=== PATIENT | male | born 1945 | race Caucasian/White ===

== ENCOUNTER 2024-01-29 09:55 | Outpatient (AMB) | payer OTHER, SELFPAY ==
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
[2024-01-29 10:13] VITALS: BP 98/70; PULSE 68; O2SAT 96; BMI 19.7
== END 2024-01-29 12:03 | disposition home or self-care (01) ==
PROVIDERS: Visit Provider Nurse Practitioner Family
DX: G20.A1 Parkinson's disease without dyskinesia, without mention of fluctuations (principal); R41.841 Cognitive communication deficit; F34.1 Dysthymic disorder
CPT/HCPCS: 99204

== ENCOUNTER → 2024-01-29 09:55 | Outpatient (BNVA) | payer OTHER, SELFPAY | PROVIDERS: Visit Provider Nurse Practitioner Family | DX: G20.A1 Parkinson's disease without dyskinesia, without mention of fluctuations (principal); F02.80 Dementia in other diseases classified elsewhere, unspecified severity, without behavioral disturbance, psychotic disturbance, mood disturbance, and anxiety; R41.841 Cognitive communication deficit; R26.9 Unspecified abnormalities of gait and mobility; R29.898 Other symptoms and signs involving the musculoskeletal system; F34.1 Dysthymic disorder | CPT/HCPCS: 99202 ==

== ENCOUNTER 2024-08-08 08:02 | Outpatient (AMB) | payer OTHER, SELFPAY ==
[2024-08-08 08:23] VITALS: BP 120/70; PULSE 70; O2SAT 97; BMI 22.6
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
== END 2024-08-08 09:25 | disposition home or self-care (01) ==
PROVIDERS: Visit Provider Nurse Practitioner Family
DX: G20.A1 Parkinson's disease without dyskinesia, without mention of fluctuations (principal); R41.841 Cognitive communication deficit; F34.1 Dysthymic disorder
CPT/HCPCS: 99214

== ENCOUNTER → 2024-08-08 08:02 | Outpatient (BNVA) | payer OTHER, SELFPAY | PROVIDERS: Visit Provider Nurse Practitioner Family | DX: G20.A1 Parkinson's disease without dyskinesia, without mention of fluctuations (principal); R41.841 Cognitive communication deficit; F34.1 Dysthymic disorder | CPT/HCPCS: 99212 ==

== ENCOUNTER 2025-02-07 07:52 | Outpatient (AMB) | payer OTHER, SELFPAY ==
--- OUTSIDE RECORDS SUMMARY | 2025-02-07 07:55 | XMS_ITS | Clinical Summary ---
Author Organization [facility] Address [address] [place] [address] Care Team Providers Care Fermentation Manager Name Role Phone Pcp, No Primary Care Provider Unavailabl e Medications mirtazapine (Remeron) 30 mg tablet Take 30 mg by mouth at bedtime. Active omeprazole (PriLOSEC) [address] capsule Take 20 mg by mouth before breakfast. Do not crush or chew. Active rosuvastatin (Crestor) 10 mg tablet Take 10 mg by mouth in the morning. Active aspirin 81 mg chewable tablet Chew 81 mg in the morning. Active sertraline (Zoloft) 100 mg tablet Take 100 mg by mouth in the morning. Active tamsulosin (Flomax) 0.4 mg 24 hr capsule Take 0.4 mg by mouth in the morning. Active losartan (Cozaar) 100 mg tablet Take 100 mg by mouth in the morning. Active levothyroxine (Synthroid, Levoxyl) 75 mcg tablet Take 112 mcg by mouth before breakfast. Active carbidopa-levodo pa (Sinemet) 25-100 mg tablet Take 1 tablet by mouth in the morning, at noon, and at bedtime. Active amLODIPine (Norvasc) 10 mg tablet Take by mouth in the morning. Active Active Problems Problem Noted Date Diagnosed Date Parkinson disease (Multi-HCC) 05/12/2022 Assessment & Plan (05/12/2022 8:56 AM EST): His examination is clinically ambiguous but I would lean more towards that he has an early Parkinson's diagnosis largely based on the asymmetric slowness of movement and rigidity. The tremor is more suggestive of an essential tremor-type. I think getting a DaTscan is a good idea and would [facility]. I would also consider holding the levodopa and consider something else like rasagiline instead due to the mildness of his motor symptoms. He will follow-up as needed if the [facility] is unable to arrange for the DaTscan. Social History Tobacco Use Types Packs/Day Years Used Date Smoking Tobacco: Never Assessed Sex and Gender Information Value Date Recorded Sex Assigned at Not on file Legal Sex Male 4:12 PM EDT Gender Identity Not on file Sexual Orientation Not on file Last Filed Vital Signs Vital Sign Reading Time Taken Comments Blood Pressure 121/65 05/12/2022 8:09 AM EST Pulse 71 05/12/2022 8:09 AM EST Temperature - - Respiratory Rate - - Oxygen Saturation - - Inhaled Oxygen Concentration - - Weight 70.3 kg (155 lb) 05/12/2022 8:09 AM EST Height 180.3 cm (5' 11 ) 05/12/2022 8:09 AM EST Body Mass Index 21.62 05/12/2022 8:09 AM EST Plan of Treatment Health Maintenance Due Date Last Done Comments Lipid Panel 1945 Hepatitis C Screening 10/02/1963 Pneumococcal Vaccine: 50+ Years (2 of 2 - PCV20 or PCV21) 09/09/2015 09/08/2014 Zoster Vaccines (2 of 3) 06/17/2019 04/22/2019, 07/10 COVID-19 Vaccine ( season) 2024 04/09/2022, 05/22/2021, 08/15/2020, Additional history exists Depression Screening 06/08/2024 Influenza Vaccine (#1) 2025 , 03/01/2020, 04/07/2019, Additional history exists DTaP/Tdap/Td Vaccines (2 - Td or Tdap) 01/18/2030 01/19/2020 HIB Vaccines Aged Out No longer eligi ble based on patient's age to complete this topic HPV Vaccines Aged Out No longer eligi ble based on patient's age to complete this topic Hepatitis A Vaccines Aged Out No long er eligible based on patient's age to complete this topic Hepatitis B Vaccines Aged Out No long er eligible based on patient's age to complete this topic IPV Vaccines Aged Out No longer eligi ble based on patient's age to complete this topic Meningococcal B Vaccine Aged Out No l onger eligible based on patient's age to complete this topic Meningococcal Vaccine Aged Out No patti sonja eligible based on patient's age to complete this topic Rotavirus Vaccines Aged Out No longer eligible based on patient's age to complete this topic Insurance [place] [id number] Care Teams Fermentation Manager Relationship Specialty Start Date End Date Emy Juan [place] PCP - General Internal Medicine 05/12/22
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
[2025-02-07 07:57] VITALS: BP 128/72; PULSE 63; O2SAT 97; BMI 22.9
== END 2025-02-07 08:58 | disposition home or self-care (01) ==
LOC: HO.HSMS 07:53
PROVIDERS: Visit Provider Nurse Practitioner Family
DX: G20.A1 Parkinson's disease without dyskinesia, without mention of fluctuations (principal); R41.841 Cognitive communication deficit; F34.1 Dysthymic disorder
CPT/HCPCS: 99214

== ENCOUNTER → 2025-02-07 07:52 | Outpatient (BNVA) | payer OTHER, SELFPAY | PROVIDERS: Visit Provider Nurse Practitioner Family | DX: G20.A1 Parkinson's disease without dyskinesia, without mention of fluctuations (principal); R41.841 Cognitive communication deficit; F34.1 Dysthymic disorder | CPT/HCPCS: 99212 ==